=== PATIENT | male | born 1960 | race Caucasian/White ===

== ENCOUNTER 2016-04-23 08:52 | Inpatient (IN) | payer OTHER ==
--- NOTE | 2016-04-23 10:50 | HP ---
[facility] Rehab Assess/Revision - Admission History Admitted to Rehab from: [facility] Date of Admission to Rehab: 04/23/16 - Findings Detox History & Physical reviewed: Yes Concur with findings: Yes Comments/Additional Findings: for rehab as protocol
[2016-04-23 10:57] VITALS: BMI 28.1
[2016-04-23] MEDS ORDERED: P-EPHED 60MG/TRIPROLIDI 2.5MG TABLET PO PRN (13:24)
[2016-04-23] MEDS ORDERED: MAGNESIUM HYDROX 2400MG/30ML ORAL SUSPENSION 30 ML CUP PO PRN (13:24)
[2016-04-23] MEDS ORDERED: IBUPROFEN 400 MG TABLET (FP) PO PRN (13:24)
[2016-04-23] MEDS ORDERED: LOPERAMIDE HCL 2 MG CAPSULE PO PRN (13:24)
[2016-04-23] MEDS ORDERED: MENTHOL/PHENOL 1 EACH UD MM PRN (13:24)
[2016-04-23] MEDS ORDERED: hydrOXYzine PAMOATE 50 MG CAPSULE (FP) PO PRN (13:24)
[2016-04-23] MEDS ORDERED: ACETAMINOPHEN 325 MG TABLET (FP) PO PRN (13:24)
[2016-04-23] MEDS ORDERED: MAGNESIUM CITRATE 300 ML BOTTLE PO PRN (13:24)
[2016-04-23] MEDS: ALBUTEROL SO4 2.5/IPRATROPIUM 0.5 INH SOL 3 ML VIAL.NEB. NEB PRN ×2 (16:33→19:40)
[2016-04-23] MEDS: ALBUTEROL SO4 6.7 GM HFA INHALER IH PRN (18:42)
--- NOTE | 2016-04-23 22:20 | PN ---
[facility] Progress Note Note: received nurse call patient has asthma needed to be seen observed patient laying on bed alert oriented x 3 ambulatory, steady gait, speech clearly with complete whole sentence, skin warm dry good turgur, s1s2, wheezing right mid and lower lobes 02 sat 96% patient has his own medication prednison 20 mg x 4 pills taking 40 mg daily 2 more day supply zithromycin 250 mg x 4 pills po daily four more days supply begin symbicor chest x ray continue rehab
[2016-04-23] MEDS: THIAMINE HCL 100 MG TABLET (FP) PO SCH (22:22)
[2016-04-23] MEDS: ATORVASTATIN CA 10 MG TABLET (FP) PO SCH (22:22)
[2016-04-23] MEDS: BUDESONIDE/FORMETEROL FUMARATE 80/4.5 mcg INHALER IH SCH (22:28)
[2016-04-24] MEDS: ALBUTEROL SO4 2.5/IPRATROPIUM 0.5 INH SOL 3 ML VIAL.NEB. NEB PRN ×2 (03:22→20:55)
[2016-04-24] MEDS ORDERED: LEVOTHYROXINE NA 100 MCG TABLET (FP) ONE (05:59)
[2016-04-24] MEDS ORDERED: LEVOTHYROXINE NA 25 MCG TABLET (FP) ONE (05:59)
--- NOTE | 2016-04-24 06:39 | HP ---
Psychiatrist Admission - Data Date of interview: 04/24/16 Admission source: 6N Identifying data: This is the first [facility] admission for this 55 years old male, father of a 32 years old daughter, unemployed on SSI, domiciled Medical History: Significant for history of Asthma, HTN, Hyperlipidemia, LBP, treatment for Hep C and Hypothyroidism. Smokes 10 cigarettes daily Psychiatric History: Reports that his first psychiatric contact was when he was in 4th grade because of behavioral issues and anger. He was prescribed Ritalin which he took for only 2-3 years since his mother objected for him to continue with that treatment. Told feature writer, he saw psychiatrist while incarcerated in the 's, 's and s. Claims that in these settings he was diagnosed with PTSD and prescribed antidepressant medication like Sinequan, Elavil etc along with Klonopin. Currently, reports that he sees Dr Gudino, a psychiatrist in [place], [place] and he is prescribed Lexapro 20 mg po daily and Xanax 2 mg po BID. Claims he was recently switched from Prozac 60 mg to Lexapro 20 mg. Reports that he is seeing a therapist as well at a different location. Denies previous psychiatric hospitalization or suicidal attempt. At present, reports feeling mildly anxious and experiencing difficulty to sleep. Declines to take Lexapro during this rehab stay. Physical/Sexual Abuse/Trauma History: Reports having some trauma in his childhoodbut does not want to talk about it. Told feature writer that he talked to his therapist and psychiatrist about that Additional Comment: Reports multiple arrests including 3 felony convictions. Reports being on parole till Jan 2019 Vital Signs: Vital Signs - 24 hr 04/23/16 04/24/16 10:55 00:30 Temperature 98.0 F Pulse Rate 103 H Respiratory 20 18 Rate Blood Pressure 130/92 Allergies/Adverse Reactions: Allergies Allergy/AdvReac Type Severity Reaction Status Date / Time shellfish derived Allergy Severe Difficulty Verified 04/16/16 13:16 Breathing No Known Drug Allergies Allergy Verified 04/16/16 13:16 Date of last physical exam: 04/16/16 Concur with the findings of this exam: Yes - Substance Abuse/Tx History Hx Alcohol Use: No Hx Substance Use: Yes Substance Use Type: Heroin (Started using heroin at age 12, consumes 10-20 bags daily. Last used on 04/16/16) Hx Substance Use Treatment: Yes (2 previous inpt detox @ [facility]) - Admission Criteria Previous failed treatment: Yes Poor recovery environment: Yes Comorbidities: Yes Lacks judgement: Yes Mental Status Exam - Mental Status Exam Alert and Oriented to: Time, Place, Person Cognitive Function: Fair Patient Appearance: Well Groomed Mood: Anxious Affect: Appropriate Patient Behavior: Cooperative Speech Pattern: Clear Voice Loudness: Normal Thought Process: Intact Thought Disorder: Not Present Hallucinations: Denies Suicidal Ideation: Denies Homicidal Ideation: Denies Insight/Judgement: Fair Sleep: Poorly Appetite: Fair Muscle strength/Tone: Normal Gait/Station: Normal Psychiatric Findings - Problem List ([place] 1, 2,3) (1) Opioid dependence with withdrawal Current Visit: No Status: Chronic (2) Nicotine dependence Current Visit: No Status: Chronic Qualifiers: Substance use status: in remission Comment: pt quit a week ago and now vapes (3) PTSD (post-traumatic stress disorder) Current Visit: Yes Status: Acute (4) Substance-induced anxiety disorder Current Visit: Yes Status: Acute (5) Hepatitis C Current Visit: No Status: Acute (6) Low back pain Current Visit: No Status: Acute (7) Asthma Current Visit: No Status: Chronic Qualifiers: Asthma severity: mild intermittent Asthma complication type: uncomplicated Qualified Code(s): J45.20 - Mild intermittent asthma, uncomplicated (8) Hypercholesterolemia Current Visit: No Status: Chronic (9) Hypertension Current Visit: No Status: Chronic Qualifiers: Hypertension type: essential hypertension Qualified Code(s): I10 - Essential (primary) hypertension (10) Hypothyroid Current Visit: No Status: Chronic Qualifiers: Hypothyroidism type: acquired Qualified Code(s): E03.9 - Hypothyroidism, unspecified - Initial Treatment Plan Initial Treatment Plan: Monitor progress
[2016-04-24] MEDS ORDERED: LEVOTHYROXINE 25 MCG, LEVOTHYROXINE 100 MCG PO SCH (07:00)
[2016-04-24] MEDS: HYDROCHLOROTHIAZIDE 25 MG TABLET (FP) PO SCH (09:31)
[2016-04-24] MEDS: predniSONE 20 MG TABLET (UD) PO SCH (09:31)
[2016-04-24] MEDS: PRENATAL VITAMINS W/ FOLIC ACID TABLET (FP) PO SCH (09:31)
[2016-04-24] MEDS: BUDESONIDE/FORMETEROL FUMARATE 80/4.5 mcg INHALER IH SCH ×2 (09:32→21:29)
[2016-04-24] MEDS ORDERED: LEVOTHYROXINE NA 125 MCG TABLET (FP) PO SCH (10:00)
[2016-04-24] MEDS: AZITHROMYCIN 250 MG PO SCH (10:15)
[2016-04-24] MEDS: THIAMINE HCL 100 MG TABLET (FP) PO SCH (21:30)
[2016-04-24] MEDS: ATORVASTATIN CA 10 MG TABLET (FP) PO SCH (21:30)
[2016-04-24] MEDS: diphenhydrAMINE HCL 50 MG CAPSULE PO PRN (21:31)
[2016-04-25] MEDS: LEVOTHYROXINE PO SCH (06:37)
[2016-04-25] MEDS: HYDROCHLOROTHIAZIDE 25 MG TABLET (FP) PO SCH (09:36)
[2016-04-25] MEDS: AZITHROMYCIN 250 MG PO SCH (09:36)
[2016-04-25] MEDS: PRENATAL VITAMINS W/ FOLIC ACID TABLET (FP) PO SCH (09:36)
[2016-04-25] MEDS: BUDESONIDE/FORMETEROL FUMARATE 80/4.5 mcg INHALER IH SCH ×2 (09:36→21:30)
[2016-04-25] MEDS: predniSONE 20 MG TABLET (UD) PO SCH (09:36)
[2016-04-25] MEDS: ALBUTEROL SO4 6.7 GM HFA INHALER IH PRN (09:38)
[2016-04-25] MEDS: ATORVASTATIN CA 10 MG TABLET (FP) PO SCH (21:30)
[2016-04-25] MEDS: diphenhydrAMINE HCL 50 MG CAPSULE PO PRN (21:31)
[2016-04-25] MEDS: THIAMINE HCL 100 MG TABLET (FP) PO SCH (21:31)
[2016-04-26] MEDS: LEVOTHYROXINE PO SCH (06:00)
[2016-04-26] MEDS: HYDROCHLOROTHIAZIDE 25 MG TABLET (FP) PO SCH (09:49)
[2016-04-26] MEDS: PRENATAL VITAMINS W/ FOLIC ACID TABLET (FP) PO SCH (09:49)
[2016-04-26] MEDS: BUDESONIDE/FORMETEROL FUMARATE 80/4.5 mcg INHALER IH SCH ×2 (09:49→21:45)
[2016-04-26] MEDS: AZITHROMYCIN 250 MG PO SCH (09:49)
[2016-04-26] MEDS: THIAMINE HCL 100 MG TABLET (FP) PO SCH (21:45)
[2016-04-26] MEDS: ATORVASTATIN CA 10 MG TABLET (FP) PO SCH (21:46)
[2016-04-27] MEDS: LEVOTHYROXINE PO SCH (07:31)
--- NOTE | 2016-04-27 07:40 | PN ---
S Progress Note Note: patient has nausea and vomiting,will give zofran sl,close monitoring
[2016-04-27] MEDS: ONDANSETRON *ODT* 4 MG TABLET SL PRN ×2 (07:43→19:03)
--- NOTE | 2016-04-27 09:38 | PN ---
S Progress Note Note: PT. DID NOT COMPLETE DETOX,HE SIGNED OTU AMA ON 04/19/16 & RETURN FOR REHAB ON 04/23/16. PT. IS C/O WITHDRAWAL SX. Vital Signs - 8 hr 04/27/16 04/27/16 07:18 08:56 Temperature 96.8 F L 97.4 F L Pulse Rate 99 H 106 H Respiratory 20 20 Rate Blood Pressure 152/109 149/100 P : CLONIDINE/FLEXERIL & MOTRIN 800MG
[2016-04-27] MEDS: PRENATAL VITAMINS W/ FOLIC ACID TABLET (FP) PO SCH (10:20)
[2016-04-27] MEDS: HYDROCHLOROTHIAZIDE 25 MG TABLET (FP) PO SCH (10:21)
[2016-04-27] MEDS: cloNIDine HCL 0.1 MG TABLET PO SCH ×2 (10:23→21:02)
[2016-04-27] MEDS ORDERED: CYCLOBENZAPRINE HCL 10 MG TABLET (FP) ONE (10:23)
[2016-04-27] MEDS ORDERED: cloNIDine HCL 0.1 MG TABLET ONE (10:23)
[2016-04-27] MEDS: AZITHROMYCIN 250 MG PO SCH (10:24)
[2016-04-27] MEDS: BUDESONIDE/FORMETEROL FUMARATE 80/4.5 mcg INHALER IH SCH ×2 (10:25→21:02)
[2016-04-27] MEDS ORDERED: CYCLOBENZAPRINE HCL 10 MG TABLET (FP) PO ONE (10:30)
[2016-04-27] MEDS: CYCLOBENZAPRINE HCL 10 MG TABLET (FP) PO SCH ×2 (14:27→21:02)
[2016-04-27] MEDS: IBUPROFEN 400 MG TABLET (FP) PO PRN (19:03)
[2016-04-27] MEDS: ALBUTEROL SO4 6.7 GM HFA INHALER IH PRN (21:02)
[2016-04-27] MEDS: ATORVASTATIN CA 10 MG TABLET (FP) PO SCH (21:02)
[2016-04-27] MEDS: THIAMINE HCL 100 MG TABLET (FP) PO SCH (21:02)
[2016-04-28] MEDS: CYCLOBENZAPRINE HCL 10 MG TABLET (FP) PO SCH ×3 (06:56→21:48)
[2016-04-28] MEDS: LEVOTHYROXINE PO SCH (06:56)
[2016-04-28] MEDS: IBUPROFEN 400 MG TABLET (FP) PO PRN (06:57)
[2016-04-28] MEDS: cloNIDine HCL 0.1 MG TABLET PO SCH ×2 (09:53→22:23)
[2016-04-28] MEDS: BUDESONIDE/FORMETEROL FUMARATE 80/4.5 mcg INHALER IH SCH ×2 (09:53→22:23)
[2016-04-28] MEDS: PRENATAL VITAMINS W/ FOLIC ACID TABLET (FP) PO SCH (09:53)
[2016-04-28] MEDS: HYDROCHLOROTHIAZIDE 25 MG TABLET (FP) PO SCH (09:53)
[2016-04-28] MEDS: ONDANSETRON *ODT* 4 MG TABLET SL PRN (19:36)
[2016-04-28] MEDS: THIAMINE HCL 100 MG TABLET (FP) PO SCH (22:23)
[2016-04-28] MEDS: ATORVASTATIN CA 10 MG TABLET (FP) PO SCH (22:23)
[2016-04-29] MEDS: MAG HYDROX/AL HYDROX/SIMETH 30 ML UNIT-DOSE CUP PO PRN (00:54)
[2016-04-29] MEDS ORDERED: PANTOPRAZOLE 40 MG TABLET (FP) PO ONE (01:17)
--- NOTE | 2016-04-29 01:17 | PN ---
[facility] Progress Note Note: PATIENT COMPLAINT OF CHEST PAIN,DYSPEPSIA,NO RADIATION,BURPING,COMFORTABLE,NOT IN ANY DISTRESS NO RADIATION OF PAIN,NO SOB,PAIN IN THE BODY AND BACK AND EXTREMITIES VITAL SIGNS T 98.7,P100,BP 138/98,T 98.7 HEENT NORMAL NECK SUPPLE HEART SOUND NORMAL HEART SOUND,S1,S2, LUNG CLEAR,NO WHEEZING ABDOMEN SOFT,NO DISTENSION NO PAIN OR TENDERNESS BOWEL SOUND ACTIVE EXTREMITIES ON CALF TENDERNESS EKG SINUS TACHYCARDIA RATE 100/MIN,NO CHANGE COMPARE WITH 04/16/16 IMPRESSION DYSPEPSIA R/O GERD HISTORY OF OPIOID DEPENDENCE HYPERCHOLESTEROLEMIA ASTHMA WITHDRAWAL SYMPTOM TREATMENT PROTONIX 40 MGS PO NOW THEN DAILY ASA 162 MGS PO NOW THEN 81 MGS PO DAILY CLOSE MONITORING CARDIAC ENZYMES,CPK,TROPONIN FLEXERIL 10 MGS PO TID CLONIDINE 0.1 MG PO BID
[2016-04-29] MEDS ORDERED: ASPIRIN COATED 81 MG TABLET.EC PO ONE (01:31)
[2016-04-29] MEDS: CYCLOBENZAPRINE HCL 10 MG TABLET (FP) PO SCH ×3 (06:22→21:39)
[2016-04-29] MEDS: LEVOTHYROXINE PO SCH (06:23)
[2016-04-29] MEDS ORDERED: ASPIRIN COATED 81 MG TABLET.EC PO SCH (10:00)
[2016-04-29] MEDS: PRENATAL VITAMINS W/ FOLIC ACID TABLET (FP) PO SCH (11:00)
[2016-04-29] MEDS: HYDROCHLOROTHIAZIDE 25 MG TABLET (FP) PO SCH (11:00)
[2016-04-29] MEDS: ASPIRIN COATED 81 MG TABLET.EC PO SCH (11:00)
[2016-04-29] MEDS: cloNIDine HCL 0.1 MG TABLET PO SCH ×2 (11:00→21:39)
[2016-04-29] MEDS: BUDESONIDE/FORMETEROL FUMARATE 80/4.5 mcg INHALER IH SCH ×2 (11:00→21:37)
[2016-04-29 16:19] LABS: TROPONIN I < 0.02 ng/ml (0.00-0.05)
--- NOTE | 2016-04-29 20:51 | PN ---
[facility] Progress Note Note: PATIENT COMPLAINED OF EPIGASTRIC PAIN ,NAUSEA,NO VOMITING ,NO DIARRHEA STATED HAS SIMILAR PROBLEM ON AND OFF FOR 1 YEAR HAS BEEN SEEN BY PMD AND SPECIALIST A,STATED HAS CT OF ABDOMEN DONE ALERT,NOT IN DISTRESS HEART NORMAL HEART SOUND,S1S2,NO MURMUR LUNG LEAR,NO WHEEZING ABDOMEN SOFT,NO DISTENSION PAIN ON DEEP PALPATION OF EPIGASTRUIM NO MASS PALPABLE BOWEL SOUND ACTIVE NO TENDERNESS NO REBOUND NO CALF TENDERNESS Vital Signs Temperature 96 F L 04/29/16 06:30 Pulse Rate 120 H 04/29/16 15:27 Respiratory Rate 18 04/29/16 06:30 Blood Pressure 121/99 04/29/16 15:27 O2 Sat by Pulse Oximetry (%) EKG NSR NO ACUTE CHANGE RATE 80/MIN Laboratory Last Values Creatine Kinase 296 IU/L (39-308) 04/29/16 15:00 Creatine Kinase Index 0.6 % (0.0-5.0) 04/29/16 15:00 CK-MB (CK-2) 1.745 ng/ml (0.5-3.6) 04/29/16 15:00 CK-MB (CK-2) Rel Index Cancelled 04/29/16 15:00 Troponin I < 0.02 ng/ml (0.00-0.05) 04/29/16 15:00 IMPRESSION ABDOMINAL PAIN EPIGASTRIC PAIN R/O PANCREATITIS R/O GERD TREATMENT CBC,CMP,AMYLASE,LIPASE IN AM CLOSE MONITORING
[2016-04-29] MEDS: THIAMINE HCL 100 MG TABLET (FP) PO SCH (21:39)
[2016-04-29] MEDS: ATORVASTATIN CA 10 MG TABLET (FP) PO SCH (21:39)
[2016-04-30] MEDS: CYCLOBENZAPRINE HCL 10 MG TABLET (FP) PO SCH ×3 (06:23→23:05)
[2016-04-30] MEDS: LEVOTHYROXINE PO SCH (06:23)
[2016-04-30] MEDS: BUDESONIDE/FORMETEROL FUMARATE 80/4.5 mcg INHALER IH SCH ×2 (09:33→21:07)
[2016-04-30] MEDS: cloNIDine HCL 0.1 MG TABLET PO SCH ×2 (09:33→23:05)
[2016-04-30] MEDS: ASPIRIN COATED 81 MG TABLET.EC PO SCH (09:33)
[2016-04-30] MEDS: PRENATAL VITAMINS W/ FOLIC ACID TABLET (FP) PO SCH (09:33)
[2016-04-30] MEDS: HYDROCHLOROTHIAZIDE 25 MG TABLET (FP) PO SCH (09:34)
[2016-04-30 11:03] LABS: MCH 28.3 pg (25.7-33.7); MCHC 32.7 g/dl (32.0-35.9); MEAN CELL VOLUME 86.4 fl (80-96); MEAN PLT VOLUME 9.7 fl (7.5-11.1); PLATELET COUNT 265 K/MM3 (134-434); RDW 13.4 % (11.9-15.9)
[2016-04-30 11:16] LABS: AMYLASE 121 U/L (25-115)
[2016-04-30 11:26] LABS: ALBUMIN 4.2 g/dl (3.4-5.0); ALK PHOS 116 U/L (45-117); ANION GAP 6 (8-16); BILIRUBIN,TOTAL 1.2 mg/dL (0.2-1.0); CALCIUM 9.1 mg/dL (8.5-10.1); CO2 35 mmol/L (21-32); CREATININE 1.2 mg/dL (0.7-1.3); GLUCOSE,RANDOM 96 mg/dL (74-106); SGOT/AST 19 U/L (15-37); SGPT/ALT 62 U/L (12-78); TOT PROT 7.7 g/dl (6.4-8.2)
[2016-04-30] MEDS: ATORVASTATIN CA 10 MG TABLET (FP) PO SCH (23:06)
[2016-04-30] MEDS: THIAMINE HCL 100 MG TABLET (FP) PO SCH (23:06)
[2016-05-01] MEDS: CYCLOBENZAPRINE HCL 10 MG TABLET (FP) PO SCH ×3 (05:54→23:03)
[2016-05-01] MEDS: LEVOTHYROXINE PO SCH (06:42)
[2016-05-01] MEDS: BUDESONIDE/FORMETEROL FUMARATE 80/4.5 mcg INHALER IH SCH ×2 (09:36→23:03)
[2016-05-01] MEDS: ASPIRIN COATED 81 MG TABLET.EC PO SCH (09:36)
[2016-05-01] MEDS: HYDROCHLOROTHIAZIDE 25 MG TABLET (FP) PO SCH (09:37)
[2016-05-01] MEDS: cloNIDine HCL 0.1 MG TABLET PO SCH ×2 (09:38→23:02)
[2016-05-01] MEDS: PRENATAL VITAMINS W/ FOLIC ACID TABLET (FP) PO SCH (09:38)
--- NOTE | 2016-05-01 15:59 | PN ---
[facility] Progress Note Note: 55 y/o m pt with a h/o ruq pain for apprx. 1 yr . Who was evaluated at [facility] 3m ago had ct and GI evaluation stated no dx was made . Pt gives h/o egd and colonoscopy with multiple polyps removed . Pt states pt is not constant , may occur between 2-4 weeks and resolves on its own . Pain not associated with n/v/ d or fever . Pain not assoc with ingestion of food. Pt at present w/o pain states it resolved spontaeously afew minutes before this evaluation. Vital Signs Temperature 98.5 F 05/01/16 06:38 Pulse Rate 112 H 05/01/16 10:00 Respiratory Rate 20 05/01/16 10:00 Blood Pressure 141/78 05/01/16 10:00 O2 Sat by Pulse Oximetry (%) bp 114/79, p 106/m reg ,r 20/m , t 98.7 pt lying in bed aox3 in nad 'w/o abdominal pain abdomen - no scars, soft, nontender, no masses , bs+ Laboratory Tests 04/29/16 04/29/16 04/29/16 15:00 15:00 15:00 WBC RBC Hgb Hct MCV MCHC RDW Plt Count MPV Sodium Potassium Chloride Carbon Dioxide Anion Gap BUN Creatinine Creat Clearance w eGFR Random Glucose Calcium Total Bilirubin AST ALT Alkaline Phosphatase Creatine Kinase 300 296 Creatine Kinase Index 0.6 CK-MB (CK-2) 1.745 CK-MB (CK-2) Rel Index Cancelled Troponin I < 0.02 Total Protein Albumin Total Amylase Lipase 04/30/16 04/30/16 04/30/16 08:05 08:05 08:05 WBC 12.0 H D RBC 5.93 H Hgb 16.8 D Hct 51.3 H D MCV 86.4 MCHC 32.7 RDW 13.4 Plt Count 265 MPV 9.7 Sodium 133 L Potassium 3.5 Chloride 92 L D Carbon Dioxide 35 H D Anion Gap 6 L BUN 21 H D Creatinine 1.2 Creat Clearance w eGFR > 60 Random Glucose 96 Calcium 9.1 Total Bilirubin 1.2 H D AST 19 ALT 62 D Alkaline Phosphatase 116 D Creatine Kinase Creatine Kinase Index CK-MB (CK-2) CK-MB (CK-2) Rel Index Troponin I Total Protein 7.7 Albumin 4.2 Total Amylase 121 H Lipase 319 imp- ruq abdominal pain ? etiology plan will repeat labs u/s of abd
[2016-05-01] MEDS: MAG HYDROX/AL HYDROX/SIMETH 30 ML UNIT-DOSE CUP PO PRN (20:07)
[2016-05-01] MEDS: THIAMINE HCL 100 MG TABLET (FP) PO SCH (23:03)
[2016-05-01] MEDS: ATORVASTATIN CA 10 MG TABLET (FP) PO SCH (23:03)
[2016-05-02] MEDS: CYCLOBENZAPRINE HCL 10 MG TABLET (FP) PO SCH ×3 (07:00→23:27)
[2016-05-02] MEDS: LEVOTHYROXINE PO SCH (07:00)
[2016-05-02 10:11] LABS: BASOPHIL 0.4 % (0-2.0); EOSINOPHIL 2.3 % (0-4.5); MCH 28.2 pg (25.7-33.7); MCHC 32.9 g/dl (32.0-35.9); MEAN CELL VOLUME 85.7 fl (80-96); MEAN PLT VOLUME 9.8 fl (7.5-11.1); NEUTROPHILS 55.6 % (42.8-82.8); PLATELET COUNT 269 K/MM3 (134-434); RDW 12.8 % (11.9-15.9); WHITE BLOOD COUNT 8.7 K/mm3 (4.0-10.0)
[2016-05-02] MEDS: cloNIDine HCL 0.1 MG TABLET PO SCH ×2 (10:18→23:26)
[2016-05-02] MEDS: BUDESONIDE/FORMETEROL FUMARATE 80/4.5 mcg INHALER IH SCH ×2 (10:19→21:53)
[2016-05-02] MEDS: PRENATAL VITAMINS W/ FOLIC ACID TABLET (FP) PO SCH (10:19)
[2016-05-02] MEDS: HYDROCHLOROTHIAZIDE 25 MG TABLET (FP) PO SCH (10:19)
[2016-05-02] MEDS: ASPIRIN COATED 81 MG TABLET.EC PO SCH (10:19)
[2016-05-02 10:59] LABS: ALBUMIN 3.9 g/dl (3.4-5.0); ALK PHOS 108 U/L (45-117); AMYLASE 134 U/L (25-115); ANION GAP 11 (8-16); BILIRUBIN,TOTAL 1.2 mg/dL (0.2-1.0); CALCIUM 9.1 mg/dL (8.5-10.1); CO2 28 mmol/L (21-32); CREATININE 1.1 mg/dL (0.7-1.3); GLUCOSE,RANDOM 123 mg/dL (74-106); SGOT/AST 17 U/L (15-37); SGPT/ALT 57 U/L (12-78); TOT PROT 7.2 g/dl (6.4-8.2)
[2016-05-02] MEDS: ALBUTEROL SO4 2.5/IPRATROPIUM 0.5 INH SOL 3 ML VIAL.NEB. NEB PRN (18:02)
[2016-05-02] MEDS: THIAMINE HCL 100 MG TABLET (FP) PO SCH (23:27)
[2016-05-02] MEDS: ATORVASTATIN CA 10 MG TABLET (FP) PO SCH (23:27)
[2016-05-03] MEDS: CYCLOBENZAPRINE HCL 10 MG TABLET (FP) PO SCH ×3 (06:15→21:20)
[2016-05-03] MEDS: LEVOTHYROXINE PO SCH (06:15)
--- NOTE | 2016-05-03 07:16 | PN ---
S Progress Note Note: ASKED TO SEE PT FOR SKIN TEAR TO SCALP. PT REPORTS HE HIT HIS HEAD AGAINST A PAPER DISPENSER WHILE RAISING HIS HEAD UP FROM A BENDING POSITION. DENIES PAIN, LOC, DIZZINESS, OR CHANGES IN VISION. SCALP. SMALL SKIN TEAR WITH FLAP. 0.5CM X 0.5CM NOTED. NO SWELLING. SURROUNDING SKIN NTACT SCALP SKIN TEAR CLEANSE AREA WITH NS AND APPLY BACITRACIN COVER WITH CDD DAILY MONITOR FOR S/SX OF INFECTION
[2016-05-03] MEDS: PRENATAL VITAMINS W/ FOLIC ACID TABLET (FP) PO SCH (11:17)
[2016-05-03] MEDS: ASPIRIN COATED 81 MG TABLET.EC PO SCH (11:17)
[2016-05-03] MEDS: POTASSIUM CHLORIDE TABS 20 MEQ TABLET.ER (FP) PO SCH (11:17)
[2016-05-03] MEDS: BUDESONIDE/FORMETEROL FUMARATE 80/4.5 mcg INHALER IH SCH ×2 (11:18→21:19)
[2016-05-03] MEDS: BACITRACIN 0.9 GM PACKET TP SCH (11:20)
[2016-05-03] MEDS: HYDROCHLOROTHIAZIDE 25 MG TABLET (FP) PO SCH (11:20)
[2016-05-03] MEDS: cloNIDine HCL 0.1 MG TABLET PO SCH ×2 (11:20→21:20)
[2016-05-03] MEDS: THIAMINE HCL 100 MG TABLET (FP) PO SCH (21:20)
[2016-05-03] MEDS: diphenhydrAMINE HCL 50 MG CAPSULE PO PRN (21:20)
[2016-05-03] MEDS: ATORVASTATIN CA 10 MG TABLET (FP) PO SCH (21:20)
[2016-05-04] MEDS: CYCLOBENZAPRINE HCL 10 MG TABLET (FP) PO SCH ×3 (06:00→23:57)
[2016-05-04] MEDS: LEVOTHYROXINE PO SCH (06:08)
[2016-05-04] MEDS: ALBUTEROL SO4 6.7 GM HFA INHALER IH PRN ×2 (06:08→14:26)
[2016-05-04] MEDS: BACITRACIN 0.9 GM PACKET TP SCH (09:57)
[2016-05-04] MEDS: PRENATAL VITAMINS W/ FOLIC ACID TABLET (FP) PO SCH (09:57)
[2016-05-04] MEDS: BUDESONIDE/FORMETEROL FUMARATE 80/4.5 mcg INHALER IH SCH ×2 (09:57→23:57)
[2016-05-04] MEDS: cloNIDine HCL 0.1 MG TABLET PO SCH ×2 (09:57→23:57)
[2016-05-04] MEDS: POTASSIUM CHLORIDE TABS 20 MEQ TABLET.ER (FP) PO SCH (09:58)
[2016-05-04] MEDS: ASPIRIN COATED 81 MG TABLET.EC PO SCH (09:58)
[2016-05-04] MEDS: HYDROCHLOROTHIAZIDE 25 MG TABLET (FP) PO SCH (09:58)
[2016-05-04] MEDS: ATORVASTATIN CA 10 MG TABLET (FP) PO SCH (23:57)
[2016-05-04] MEDS: THIAMINE HCL 100 MG TABLET (FP) PO SCH (23:57)
[2016-05-05] MEDS: CYCLOBENZAPRINE HCL 10 MG TABLET (FP) PO SCH ×3 (06:01→21:25)
[2016-05-05] MEDS: LEVOTHYROXINE PO SCH (06:01)
[2016-05-05] MEDS: BUDESONIDE/FORMETEROL FUMARATE 80/4.5 mcg INHALER IH SCH ×2 (09:46→21:25)
[2016-05-05] MEDS: BACITRACIN 0.9 GM PACKET TP SCH (09:46)
[2016-05-05] MEDS: POTASSIUM CHLORIDE TABS 20 MEQ TABLET.ER (FP) PO SCH (09:46)
[2016-05-05] MEDS: cloNIDine HCL 0.1 MG TABLET PO SCH ×2 (09:47→21:25)
[2016-05-05] MEDS: ASPIRIN COATED 81 MG TABLET.EC PO SCH (09:47)
[2016-05-05] MEDS: PRENATAL VITAMINS W/ FOLIC ACID TABLET (FP) PO SCH (09:47)
[2016-05-05] MEDS: HYDROCHLOROTHIAZIDE 25 MG TABLET (FP) PO SCH (09:47)
[2016-05-05] MEDS: ATORVASTATIN CA 10 MG TABLET (FP) PO SCH (21:25)
[2016-05-05] MEDS: THIAMINE HCL 100 MG TABLET (FP) PO SCH (21:26)
[2016-05-06] MEDS: CYCLOBENZAPRINE HCL 10 MG TABLET (FP) PO SCH ×3 (06:08→22:25)
[2016-05-06] MEDS: LEVOTHYROXINE PO SCH (06:08)
[2016-05-06] MEDS: BACITRACIN 0.9 GM PACKET TP SCH (09:42)
[2016-05-06] MEDS: ASPIRIN COATED 81 MG TABLET.EC PO SCH (09:42)
[2016-05-06] MEDS: PRENATAL VITAMINS W/ FOLIC ACID TABLET (FP) PO SCH (09:43)
[2016-05-06] MEDS: ALBUTEROL SO4 6.7 GM HFA INHALER IH PRN ×2 (09:43→22:21)
[2016-05-06] MEDS: cloNIDine HCL 0.1 MG TABLET PO SCH ×2 (09:43→22:25)
[2016-05-06] MEDS: BUDESONIDE/FORMETEROL FUMARATE 80/4.5 mcg INHALER IH SCH ×2 (09:43→22:22)
[2016-05-06] MEDS: HYDROCHLOROTHIAZIDE 25 MG TABLET (FP) PO SCH (09:43)
[2016-05-06] MEDS ORDERED: COLLOIDAL OATMEAL 1 EACH PACKET TP PRN (13:46)
[2016-05-06] MEDS ORDERED: COLLOIDAL OATMEAL 1 BAR EACH TP PRN (15:00)
[2016-05-06] MEDS: ATORVASTATIN CA 10 MG TABLET (FP) PO SCH (22:25)
[2016-05-06] MEDS: THIAMINE HCL 100 MG TABLET (FP) PO SCH (22:25)
[2016-05-06] MEDS: AMMONIUM LACTATE 12% LOTION 225 GM BOTTLE TP PRN (23:19)
[2016-05-07] MEDS: CYCLOBENZAPRINE HCL 10 MG TABLET (FP) PO SCH ×3 (05:57→22:21)
[2016-05-07] MEDS: LEVOTHYROXINE PO SCH (06:01)
[2016-05-07] MEDS: ASPIRIN COATED 81 MG TABLET.EC PO SCH (09:38)
[2016-05-07] MEDS: BUDESONIDE/FORMETEROL FUMARATE 80/4.5 mcg INHALER IH SCH ×2 (09:39→21:18)
[2016-05-07] MEDS: PRENATAL VITAMINS W/ FOLIC ACID TABLET (FP) PO SCH (09:39)
[2016-05-07] MEDS: BACITRACIN 0.9 GM PACKET TP SCH (09:39)
[2016-05-07] MEDS: HYDROCHLOROTHIAZIDE 25 MG TABLET (FP) PO SCH (09:39)
[2016-05-07] MEDS: cloNIDine HCL 0.1 MG TABLET PO SCH ×2 (09:39→22:21)
[2016-05-07] MEDS: ALBUTEROL SO4 6.7 GM HFA INHALER IH PRN (21:18)
[2016-05-07] MEDS: AMMONIUM LACTATE 12% LOTION 225 GM BOTTLE TP PRN (21:18)
[2016-05-07] MEDS: ATORVASTATIN CA 10 MG TABLET (FP) PO SCH (22:22)
[2016-05-07] MEDS: THIAMINE HCL 100 MG TABLET (FP) PO SCH (22:23)
[2016-05-08] MEDS: CYCLOBENZAPRINE HCL 10 MG TABLET (FP) PO SCH ×3 (06:00→21:47)
[2016-05-08] MEDS: LEVOTHYROXINE PO SCH (06:00)
[2016-05-08] MEDS: HYDROCHLOROTHIAZIDE 25 MG TABLET (FP) PO SCH (10:43)
[2016-05-08] MEDS: cloNIDine HCL 0.1 MG TABLET PO SCH ×2 (10:43→21:47)
[2016-05-08] MEDS: BUDESONIDE/FORMETEROL FUMARATE 80/4.5 mcg INHALER IH SCH ×2 (10:43→21:47)
[2016-05-08] MEDS: PRENATAL VITAMINS W/ FOLIC ACID TABLET (FP) PO SCH (10:43)
[2016-05-08] MEDS: BACITRACIN 0.9 GM PACKET TP SCH (10:43)
[2016-05-08] MEDS: ASPIRIN COATED 81 MG TABLET.EC PO SCH (10:43)
[2016-05-08] MEDS: ATORVASTATIN CA 10 MG TABLET (FP) PO SCH (21:47)
[2016-05-08] MEDS: THIAMINE HCL 100 MG TABLET (FP) PO SCH (21:48)
[2016-05-09] MEDS: CYCLOBENZAPRINE HCL 10 MG TABLET (FP) PO SCH ×3 (05:51→22:55)
[2016-05-09] MEDS: LEVOTHYROXINE PO SCH (06:05)
[2016-05-09] MEDS: BACITRACIN 0.9 GM PACKET TP SCH (09:59)
[2016-05-09] MEDS: HYDROCHLOROTHIAZIDE 25 MG TABLET (FP) PO SCH (09:59)
[2016-05-09] MEDS: ASPIRIN COATED 81 MG TABLET.EC PO SCH (09:59)
[2016-05-09] MEDS: cloNIDine HCL 0.1 MG TABLET PO SCH ×2 (10:00→22:55)
[2016-05-09] MEDS: BUDESONIDE/FORMETEROL FUMARATE 80/4.5 mcg INHALER IH SCH ×2 (10:00→22:55)
[2016-05-09] MEDS: PRENATAL VITAMINS W/ FOLIC ACID TABLET (FP) PO SCH (10:00)
[2016-05-09] MEDS: THIAMINE HCL 100 MG TABLET (FP) PO SCH (22:55)
[2016-05-09] MEDS: ATORVASTATIN CA 10 MG TABLET (FP) PO SCH (22:55)
[2016-05-10] MEDS: CYCLOBENZAPRINE HCL 10 MG TABLET (FP) PO SCH ×3 (05:47→21:48)
[2016-05-10] MEDS: LEVOTHYROXINE PO SCH (06:11)
[2016-05-10] MEDS: PRENATAL VITAMINS W/ FOLIC ACID TABLET (FP) PO SCH (09:53)
[2016-05-10] MEDS: cloNIDine HCL 0.1 MG TABLET PO SCH ×2 (09:53→21:48)
[2016-05-10] MEDS: HYDROCHLOROTHIAZIDE 25 MG TABLET (FP) PO SCH (09:53)
[2016-05-10] MEDS: BACITRACIN 0.9 GM PACKET TP SCH (09:53)
[2016-05-10] MEDS: BUDESONIDE/FORMETEROL FUMARATE 80/4.5 mcg INHALER IH SCH ×2 (09:53→21:49)
[2016-05-10] MEDS: ASPIRIN COATED 81 MG TABLET.EC PO SCH (09:53)
[2016-05-10] MEDS: ATORVASTATIN CA 10 MG TABLET (FP) PO SCH (21:48)
[2016-05-10] MEDS: THIAMINE HCL 100 MG TABLET (FP) PO SCH (21:49)
[2016-05-11] MEDS: LEVOTHYROXINE PO SCH (06:06)
[2016-05-11] MEDS: CYCLOBENZAPRINE HCL 10 MG TABLET (FP) PO SCH ×3 (06:06→22:16)
[2016-05-11] MEDS: HYDROCHLOROTHIAZIDE 25 MG TABLET (FP) PO SCH (10:26)
[2016-05-11] MEDS: BACITRACIN 0.9 GM PACKET TP SCH (10:26)
[2016-05-11] MEDS: PRENATAL VITAMINS W/ FOLIC ACID TABLET (FP) PO SCH (10:27)
[2016-05-11] MEDS: cloNIDine HCL 0.1 MG TABLET PO SCH ×2 (10:27→22:16)
[2016-05-11] MEDS: ASPIRIN COATED 81 MG TABLET.EC PO SCH (10:27)
[2016-05-11] MEDS: BUDESONIDE/FORMETEROL FUMARATE 80/4.5 mcg INHALER IH SCH ×2 (10:28→22:17)
[2016-05-11] MEDS: ATORVASTATIN CA 10 MG TABLET (FP) PO SCH (22:16)
[2016-05-11] MEDS: THIAMINE HCL 100 MG TABLET (FP) PO SCH (22:17)
[2016-05-12] MEDS: CYCLOBENZAPRINE HCL 10 MG TABLET (FP) PO SCH ×3 (06:28→22:49)
[2016-05-12] MEDS: LEVOTHYROXINE PO SCH (06:28)
[2016-05-12] MEDS: ALBUTEROL SO4 6.7 GM HFA INHALER IH PRN ×2 (07:59→21:11)
[2016-05-12] MEDS: PRENATAL VITAMINS W/ FOLIC ACID TABLET (FP) PO SCH (09:55)
[2016-05-12] MEDS: ASPIRIN COATED 81 MG TABLET.EC PO SCH (09:55)
[2016-05-12] MEDS: ALBUTEROL SO4 2.5/IPRATROPIUM 0.5 INH SOL 3 ML VIAL.NEB. NEB PRN ×2 (09:56→17:44)
[2016-05-12] MEDS: HYDROCHLOROTHIAZIDE 25 MG TABLET (FP) PO SCH (09:56)
[2016-05-12] MEDS: cloNIDine HCL 0.1 MG TABLET PO SCH ×2 (09:56→22:49)
[2016-05-12] MEDS: BUDESONIDE/FORMETEROL FUMARATE 80/4.5 mcg INHALER IH SCH ×2 (09:56→21:11)
[2016-05-12] MEDS: guaiFENesin/D-METHORPHAN HB 10 ML UNIT-DOSE CUPS PO PRN ×2 (10:09→17:45)
[2016-05-12] MEDS: BACITRACIN 0.9 GM PACKET TP SCH (10:36)
[2016-05-12] MEDS: AMMONIUM LACTATE 12% LOTION 225 GM BOTTLE TP PRN (21:11)
[2016-05-12] MEDS: ATORVASTATIN CA 10 MG TABLET (FP) PO SCH (22:49)
[2016-05-12] MEDS: THIAMINE HCL 100 MG TABLET (FP) PO SCH (22:50)
[2016-05-13] MEDS: LEVOTHYROXINE PO SCH (06:19)
[2016-05-13] MEDS: CYCLOBENZAPRINE HCL 10 MG TABLET (FP) PO SCH ×3 (06:19→21:07)
[2016-05-13] MEDS: BACITRACIN 0.9 GM PACKET TP SCH (09:41)
[2016-05-13] MEDS: HYDROCHLOROTHIAZIDE 25 MG TABLET (FP) PO SCH (09:41)
[2016-05-13] MEDS: PRENATAL VITAMINS W/ FOLIC ACID TABLET (FP) PO SCH (09:41)
[2016-05-13] MEDS: cloNIDine HCL 0.1 MG TABLET PO SCH ×2 (09:41→21:07)
[2016-05-13] MEDS: BUDESONIDE/FORMETEROL FUMARATE 80/4.5 mcg INHALER IH SCH ×2 (09:41→21:06)
[2016-05-13] MEDS: ASPIRIN COATED 81 MG TABLET.EC PO SCH (09:41)
[2016-05-13] MEDS: ATORVASTATIN CA 10 MG TABLET (FP) PO SCH (21:07)
[2016-05-13] MEDS: THIAMINE HCL 100 MG TABLET (FP) PO SCH (21:07)
[2016-05-14] MEDS: CYCLOBENZAPRINE HCL 10 MG TABLET (FP) PO SCH ×3 (05:56→21:26)
[2016-05-14] MEDS: LEVOTHYROXINE PO SCH (06:13)
[2016-05-14] MEDS: cloNIDine HCL 0.1 MG TABLET PO SCH ×2 (10:58→21:26)
[2016-05-14] MEDS: BACITRACIN 0.9 GM PACKET TP SCH (10:58)
[2016-05-14] MEDS: HYDROCHLOROTHIAZIDE 25 MG TABLET (FP) PO SCH (10:58)
[2016-05-14] MEDS: ASPIRIN COATED 81 MG TABLET.EC PO SCH (10:58)
[2016-05-14] MEDS: BUDESONIDE/FORMETEROL FUMARATE 80/4.5 mcg INHALER IH SCH ×2 (10:58→21:25)
[2016-05-14] MEDS: PRENATAL VITAMINS W/ FOLIC ACID TABLET (FP) PO SCH (10:58)
[2016-05-14] MEDS: THIAMINE HCL 100 MG TABLET (FP) PO SCH (21:26)
[2016-05-14] MEDS: ATORVASTATIN CA 10 MG TABLET (FP) PO SCH (21:26)
[2016-05-15] MEDS: CYCLOBENZAPRINE HCL 10 MG TABLET (FP) PO SCH ×3 (05:52→22:49)
[2016-05-15] MEDS: LEVOTHYROXINE PO SCH (06:09)
[2016-05-15] MEDS: BUDESONIDE/FORMETEROL FUMARATE 80/4.5 mcg INHALER IH SCH ×2 (09:53→22:50)
[2016-05-15] MEDS: ASPIRIN COATED 81 MG TABLET.EC PO SCH (09:53)
[2016-05-15] MEDS: BACITRACIN 0.9 GM PACKET TP SCH (09:53)
[2016-05-15] MEDS: cloNIDine HCL 0.1 MG TABLET PO SCH ×2 (09:53→22:49)
[2016-05-15] MEDS: PRENATAL VITAMINS W/ FOLIC ACID TABLET (FP) PO SCH (09:53)
[2016-05-15] MEDS: HYDROCHLOROTHIAZIDE 25 MG TABLET (FP) PO SCH (09:53)
[2016-05-15] MEDS: ATORVASTATIN CA 10 MG TABLET (FP) PO SCH (22:49)
[2016-05-15] MEDS: THIAMINE HCL 100 MG TABLET (FP) PO SCH (22:50)
[2016-05-16] MEDS: LEVOTHYROXINE PO SCH (06:19)
[2016-05-16] MEDS: CYCLOBENZAPRINE HCL 10 MG TABLET (FP) PO SCH ×3 (06:19→21:01)
[2016-05-16] MEDS: cloNIDine HCL 0.1 MG TABLET PO SCH ×2 (10:04→21:01)
[2016-05-16] MEDS: ASPIRIN COATED 81 MG TABLET.EC PO SCH (10:04)
[2016-05-16] MEDS: HYDROCHLOROTHIAZIDE 25 MG TABLET (FP) PO SCH (10:04)
[2016-05-16] MEDS: BACITRACIN 0.9 GM PACKET TP SCH (10:04)
[2016-05-16] MEDS: PRENATAL VITAMINS W/ FOLIC ACID TABLET (FP) PO SCH (10:04)
[2016-05-16] MEDS: BUDESONIDE/FORMETEROL FUMARATE 80/4.5 mcg INHALER IH SCH ×2 (10:04→21:02)
[2016-05-16] MEDS: IBUPROFEN 400 MG TABLET (FP) PO PRN (21:00)
[2016-05-16] MEDS: ATORVASTATIN CA 10 MG TABLET (FP) PO SCH (21:01)
[2016-05-16] MEDS: THIAMINE HCL 100 MG TABLET (FP) PO SCH (21:02)
[2016-05-16] MEDS: diphenhydrAMINE HCL 50 MG CAPSULE PO PRN (23:29)
[2016-05-17] MEDS: CYCLOBENZAPRINE HCL 10 MG TABLET (FP) PO SCH ×3 (05:55→21:32)
[2016-05-17] MEDS: LEVOTHYROXINE PO SCH (06:02)
[2016-05-17] MEDS: ASPIRIN COATED 81 MG TABLET.EC PO SCH (09:57)
[2016-05-17] MEDS: PRENATAL VITAMINS W/ FOLIC ACID TABLET (FP) PO SCH (09:57)
[2016-05-17] MEDS: BACITRACIN 0.9 GM PACKET TP SCH (09:58)
[2016-05-17] MEDS: HYDROCHLOROTHIAZIDE 25 MG TABLET (FP) PO SCH (09:58)
[2016-05-17] MEDS: cloNIDine HCL 0.1 MG TABLET PO SCH ×2 (09:58→21:32)
[2016-05-17] MEDS: BUDESONIDE/FORMETEROL FUMARATE 80/4.5 mcg INHALER IH SCH ×2 (09:58→21:30)
[2016-05-17] MEDS: diphenhydrAMINE HCL 50 MG CAPSULE PO PRN (21:28)
[2016-05-17] MEDS: IBUPROFEN 400 MG TABLET (FP) PO PRN (21:29)
[2016-05-17] MEDS: THIAMINE HCL 100 MG TABLET (FP) PO SCH (21:32)
[2016-05-17] MEDS: ATORVASTATIN CA 10 MG TABLET (FP) PO SCH (21:32)
[2016-05-18] MEDS: LEVOTHYROXINE PO SCH (06:00)
[2016-05-18] MEDS: CYCLOBENZAPRINE HCL 10 MG TABLET (FP) PO SCH ×2 (06:09→14:56)
[2016-05-18 06:39] VITALS: TEMP 98.5
[2016-05-18] MEDS: BUDESONIDE/FORMETEROL FUMARATE 80/4.5 mcg INHALER IH SCH (10:28)
[2016-05-18] MEDS: BACITRACIN 0.9 GM PACKET TP SCH (10:28)
[2016-05-18] MEDS: cloNIDine HCL 0.1 MG TABLET PO SCH (10:28)
[2016-05-18] MEDS: HYDROCHLOROTHIAZIDE 25 MG TABLET (FP) PO SCH (10:28)
[2016-05-18] MEDS: ASPIRIN COATED 81 MG TABLET.EC PO SCH (10:28)
[2016-05-18] MEDS: PRENATAL VITAMINS W/ FOLIC ACID TABLET (FP) PO SCH (10:28)
[2016-05-18 12:27] VITALS: BP 111/69; PULSE 98
== END 2016-05-18 17:15 | disposition left against medical advice (07) | DRG 770 ==
LOC: YASAS 08:52 → Y3W 13:21
PROVIDERS: ADMIT Psychiatry & Neurology Psychiatry; ATTEND Psychiatry & Neurology Psychiatry
PROC: HZ2ZZZZ Detoxification Services for Substance Abuse Treatment (ICD-10-PCS; principal; 2016-04-23)
DX: F11.20 Opioid dependence, uncomplicated (principal); F17.210 Nicotine dependence, cigarettes, uncomplicated; F43.10 Post-traumatic stress disorder, unspecified; F19.280 Other psychoactive substance dependence with psychoactive substance-induced anxiety disorder; K21.9 Gastro-esophageal reflux disease without esophagitis; J45.20 Mild intermittent asthma, uncomplicated; E78.00 Pure hypercholesterolemia, unspecified; B18.2 Chronic viral hepatitis C; M54.5 Low back pain; I10 Essential (primary) hypertension; E03.9 Hypothyroidism, unspecified; R10.13 Epigastric pain; R10.11 Right upper quadrant pain; S01.00XA Unspecified open wound of scalp, initial encounter; W22.8XXA Striking against or struck by other objects, initial encounter; Y93.89 Activity, other specified; Y92.238 Other place in hospital as the place of occurrence of the external cause
CPT/HCPCS: 36415; 71020-TC; 76700-TC; 80053; 82150; 82550; 82553; 83690; 84443; 84484; 85025; 85027; 93005; 93010; 94640

== ENCOUNTER 2016-09-02 11:28 | Inpatient (IN) | payer OTHER ==
[2016-09-02 12:27] VITALS: BMI 26.7
--- NOTE | 2016-09-02 13:55 | HP ---
COWS - Scale Resting Pulse: 1= [place] 81-100 Sweatin=Flushed/Facial Moisture Restless Observation: 1= Difficult to Sit Still Pupil Size: 0= Normal to Room Light Bone or Joint Aches: 2= Severe Diffuse Aches Runny Nose/ Eye Tearin= Runny Nose/Eyes GI Upset > 30mins: 1= Stomach Cramp Tremor Observation: 2= Slight Tremor Visible Yawning Observation: 2= >3x During Session Anxiety or Irritability: 2=Irritable/Anxious Goose Flesh Skin: 0=Smooth Skin COWS Score: 15 Admission ROS S - HPI Chief Complaint: I am here to detox and stop using. Allergies/Adverse Reactions: Allergies Allergy/AdvReac Type Severity Reaction Status Date / Time No Known Drug Allergies Allergy Verified 07/03/16 09:51 History of Present Illness: pt is a 56yr old male with a history of heroin dependence seeking detox for treatment. Exam Limitations: No Limitations - Ebola screening Have you traveled outside of the country in the last 21 days: No Have you had contact with anyone from an Ebola affected area: No Have you been sick,other than usual withdrawal symptoms: No Do you have a fever: No - Review of Systems Constitutional: No Symptoms Reported EENT: reports: No Symptoms Reported Respiratory: reports: No Symptoms reported Cardiac: reports: No Symptoms Reported GI: reports: Poor Fluid Intake : reports: No Symptoms Reported Musculoskeletal: reports: Back Pain Integumentary: reports: Flushing, Sweating Neuro: reports: Tingling, Tremors Endocrine: reports: Excessive Sweating, Flushing, Intolerance to Cold, Intolerance to Heat Hematology: reports: No Symptoms Reported Psychiatric: reports: Judgement Intact, Mood/Affect Appropiate, Orientated x3, Agitated, Anxious Other Systems: Reviewed and Negative Patient History - Patient Medical History Hx Anemia: No Hx Asthma: Yes Hx Chronic Obstructive Pulmonary Disease (COPD): No Hx Cancer: No Hx Cardiac Disorders: No Hx Congestive Heart Failure: No Hx Hypertension: Yes Hx Hypercholesterolemia: Yes (ON MED LIPITOR 10 MGS PO NIGHTLY not taking any meds) Hx Pacemaker: No HX Cerebrovascular Accident: No Hx Seizures: No Hx Dementia: No Hx Diabetes: No Hx Gastrointestinal Disorders: No Hx Liver Disease: No Hx Genitourinary Disorders: No Hx Sexually Transmitted Disorders: No Hx Renal Disease (ESRD): No Hx Thyroid Disease: Yes (HYPOTHYROIDISM) Hx Human Immunodeficiency Virus (HIV): No (LAST 2014 NEGATIVE) Hx Hepatitis C: Yes (received tx 2009; undectable.) Hx Depression: Yes Hx Suicide Attempt: No Hx Bipolar Disorder: No Hx Schizophrenia: No - Patient Surgical History Past Surgical History: No Hx Neurologic Surgery: No Hx Cataract Extraction: No Hx Cardiac Surgery: No Hx Lung Surgery: No Hx Breast Surgery: No Hx Breast Biopsy: No Hx Abdominal Surgery: No Hx Appendectomy: No Hx Cholecystectomy: No Hx Genitourinary Surgery: No Hx Section: No Hx Orthopedic Surgery: No Anesthesia Reaction: No - PPD History Previous Implant?: Yes Documented Results: Positive w/o proof Results: (-) cxr106/25/15 - Reproductive History Patient is a Female of Child Bearing Age (11 -55 yrs old): No - Smoking Cessation Smoking history: Current every day smoker Have you smoked in the past 12 months: Yes Aproximately how many cigarettes per day: 20 Cigars Per Day: 0 Hx Chewing Tobacco Use: No Initiated information on smoking cessation: Yes 'Breaking Loose' booklet given: 09/02/16 - Substance & Tx. History Hx Alcohol Use: No Hx Substance Use: Yes Substance Use Type: Heroin Hx Substance Use Treatment: Yes - Substances Abused Heroin Route: Inhalation Frequency: Daily Amount used: 30-40 bags Age of first use: 11 Date of Last Use: 09/02/16 Family Disease History - Family Disease History Family Disease History: Diabetes: Mother Admission Physical Exam [facility] - Vital Signs Vital Signs: Vital Signs - 24 hr 09/02/16 12:25 Temperature 97.2 F L Pulse Rate 98 H Respiratory 20 Rate Blood Pressure 134/77 - Physical General Appearance: Yes: Appropriately Dressed, Moderate Distress, Tremorous, Irritable, Sweating, Anxious HEENTM: Yes: Normal Voice Respiratory: Yes: Lungs Clear, Normal Breath Sounds, No Respiratory Distress Neck: Yes: No masses,lesions,Nodules Breast: Yes: Within Normal Limits Cardiology: Yes: Regular Rhythm, Regular Rate, S1, S2 Abdominal: Yes: Normal Bowel Sounds Genitourinary: Yes: Within Normal Limits Back: Yes: Normal Inspection Musculoskeletal: Yes: Back pain Extremities: Yes: Normal Capillary Refill, Normal Inspection, Tremors Neurological: Yes: Fully Oriented, Alert, Normal Response Integumentary: Yes: Normal Color Lymphatic: Yes: Within Normal Limits - Diagnostic (1) Nicotine dependence Current Visit: Yes Status: Chronic Qualifiers: Nicotine product type: cigarettes Substance use status: uncomplicated Qualified Code(s): F17.210 - Nicotine dependence, cigarettes, uncomplicated Comment: pt quit a week ago and now vapes (2) Opioid dependence with withdrawal Current Visit: Yes Status: Chronic (3) Asthma Current Visit: Yes Status: Chronic Qualifiers: Asthma severity: mild intermittent Asthma complication type: uncomplicated Qualified Code(s): J45.20 - Mild intermittent asthma, uncomplicated (4) Hepatitis C Current Visit: Yes Status: Chronic Qualifiers: Viral hepatitis chronicity: chronic Hepatic coma status: without hepatic coma Qualified Code(s): B18.2 - Chronic viral hepatitis C (5) Hypercholesterolemia Current Visit: Yes Status: Chronic Comment: not taking any medication (6) Hypertension Current Visit: Yes Status: Chronic Qualifiers: Hypertension type: essential hypertension Qualified Code(s): I10 - Essential (primary) hypertension Comment: not taking any medication (7) Hypothyroid Current Visit: Yes Status: Chronic Qualifiers: Hypothyroidism type: acquired Qualified Code(s): E03.9 - Hypothyroidism, unspecified Cleared for Admission [facility] - Detox or Rehab [facility] Level of Care: Medically Managed Detox Regimen/Protocol: Methadone [facility] Breath Alcohol Content Breath Alcohol Content: 0 Urine Drug Screen - Results Drug Screen Negative: No Urine Drug Screen Results: OPI-Opiates
[2016-09-02] MEDS ORDERED: IBUPROFEN 400 MG TABLET (FP) PO PRN (13:58)
[2016-09-02] MEDS ORDERED: P-EPHED 60MG/TRIPROLIDI 2.5MG TABLET PO PRN (13:58)
[2016-09-02] MEDS ORDERED: diphenhydrAMINE HCL 50 MG CAPSULE PO PRN (13:58)
[2016-09-02] MEDS ORDERED: guaiFENesin/D-METHORPHAN HB 10 ML UNIT-DOSE CUPS PO PRN (13:58)
[2016-09-02] MEDS ORDERED: LOPERAMIDE HCL 2 MG CAPSULE PO PRN (13:58)
[2016-09-02] MEDS ORDERED: MAGNESIUM CITRATE 300 ML BOTTLE PO PRN (13:58)
[2016-09-02] MEDS ORDERED: MENTHOL/PHENOL 1 EACH UD MM PRN (13:58)
[2016-09-02] MEDS ORDERED: ACETAMINOPHEN 325 MG TABLET (FP) PO PRN (13:58)
[2016-09-02] MEDS ORDERED: MAGNESIUM HYDROX 2400MG/30ML ORAL SUSPENSION 30 ML CUP PO PRN (13:58)
[2016-09-02] MEDS ORDERED: METHADONE HCL 10 MG TABLET (FOR DETOX USE ONLY) PO ONE ×2 (14:33→23:00)
[2016-09-02] MEDS: diazePAM 5 MG TABLET PO PRN (15:30)
--- NOTE | 2016-09-02 16:49 | CONSULT ---
[facility] Psychiatric Consult - Data Date of interview: 09/02/16 Admission source: [facility] Identifying data: One of multiple admissions to [facility] for this 56 y/o male seeking detox treatment on for alcohol and heroin dependence.Patient is a ,a father of one,domiciled,disabled and supported on SSI benefits. Substance Abuse History: - Smoking Cessation. Smoking history: Current every day smoker. Have you smoked in the past 12 months: Yes. Aproximately how many cigarettes per day: 20. Cigars Per Day: 0. Hx Chewing Tobacco Use: No. Initiated information on smoking cessation: Yes. 'Breaking Loose' booklet given : 09/02/16. - Substance & Tx. History. Hx Alcohol Use: No. Hx Substance Use: Yes. Substance Use Type: Heroin. Hx Substance Use Treatment: Yes. - Substances Abused. Heroin. Route: Inhalation. Frequency: Daily. Amount used: 30-40 bags. Age of first use: 11. Date of Last Use: 09/02/16. Confirmed by patient. Medical History: Bronchial asthma,hypertension,dyslipidemia,hepatitis C,low back pain hepatitis c and hypothyroidism. Psychiatric History: Patient denies history of psychiatric hospitalizations.He indicates his intention to abstain from any psychotropic medication other than detox agents.Mr Farr is still seeeing a private psychiatrist and a therapist in [facility].Diagnosed with PTSD.Past treatment with psychostimulants during childhood.Patient denies history of suicide attempts. Physical/Sexual Abuse/Trauma History: Patient declines to provide any information." don't want to talk about these issues." Additional Comment: Urine Drug Screen Results: OPI-Opiates.Noted. Mental Status Exam - Mental Status Exam Alert and Oriented to: Time, Place, Person Cognitive Function: Good Patient Appearance: Disheveled (appears tired,fatigued) Mood: Withdrawn (neutral) Affect: Mood Congruent, Constricted Patient Behavior: Fatigued, Guarded (about issue of abuse), Appropriate, Cooperative Speech Pattern: Clear Voice Loudness: Normal Thought Process: Goal Oriented Thought Disorder: Not Present Hallucinations: Denies Suicidal Ideation: Denies Homicidal Ideation: Denies Insight/Judgement: Poor Sleep: Well, Poorly Appetite: Good Muscle strength/Tone: Normal Gait/Station: Normal Psychiatric Findings - Problem List ([place] 1, 2,3) (1) Opioid dependence with withdrawal Current Visit: Yes Status: Acute (2) Nicotine dependence Current Visit: Yes Status: Acute Qualifiers: Nicotine product type: cigarettes Substance use status: uncomplicated Qualified Code(s): F17.210 - Nicotine dependence, cigarettes, uncomplicated Comment: pt quit a week ago and now vapes (3) Substance induced mood disorder Current Visit: Yes Status: Acute (4) PTSD (post-traumatic stress disorder) Current Visit: Yes Status: Chronic (5) Asthma Current Visit: Yes Status: Chronic Qualifiers: Asthma severity: mild intermittent Asthma complication type: uncomplicated Qualified Code(s): J45.20 - Mild intermittent asthma, uncomplicated (6) Hepatitis C Current Visit: Yes Status: Chronic Qualifiers: Viral hepatitis chronicity: chronic Hepatic coma status: without hepatic coma Qualified Code(s): B18.2 - Chronic viral hepatitis C (7) Hypercholesterolemia Current Visit: Yes Status: Chronic Comment: not taking any medication (8) Hypertension Current Visit: Yes Status: Chronic Qualifiers: Hypertension type: essential hypertension Qualified Code(s): I10 - Essential (primary) hypertension Comment: not taking any medication (9) Hypothyroid Current Visit: Yes Status: Chronic Qualifiers: Hypothyroidism type: acquired Qualified Code(s): E03.9 - Hypothyroidism, unspecified (10) Low back pain Current Visit: No Status: Chronic - Initial Treatment Plan Initial Treatment Plan: Psychoeducation.Detoxification initiated.Observation.
[2016-09-02 19:10] LABS: URINE APPEARANCE CLEAR; URINE BILIRUBIN NEGATIVE (NEGATIVE); URINE COLOR YELLOW; URINE GLUCOSE (UA) NEGATIVE (NEGATIVE); URINE KETONE NEGATIVE (NEGATIVE); URINE LEUK ESTERASE NEGATIVE (NEGATIVE); URINE NITRITE NEGATIVE (NEGATIVE); URINE PROTEIN NEGATIVE (NEGATIVE); URINE UROBILINOGEN 2.0 E.U/dl E.U./dl (0.2-1.0)
[2016-09-02 19:17] LABS: URINE BLOOD 1+ (NEGATIVE)
[2016-09-02] MEDS: ALBUTEROL SO4 6.7 GM HFA INHALER IH PRN (20:38)
[2016-09-02 22:42] LABS: HIV 1 & 2 AB NEGATIVE; HIV 1 AGp24 NEGATIVE
[2016-09-02] MEDS: THIAMINE HCL 100 MG TABLET (FP) PO SCH (22:48)
[2016-09-02] MEDS: ATORVASTATIN CA 10 MG TABLET (FP) PO SCH (22:50)
[2016-09-02] MEDS ORDERED: ALBUTEROL SO4 2.5/IPRATROPIUM 0.5 INH SOL 3 ML VIAL.NEB. NEB PRN (23:18)
[2016-09-03] MEDS ORDERED: LEVOTHYROXINE NA 100 MCG TABLET (FP) ONE (05:32)
[2016-09-03] MEDS ORDERED: LEVOTHYROXINE NA 25 MCG TABLET (FP) ONE (05:32)
[2016-09-03] MEDS: LEVOTHYROXINE 25 MCG, LEVOTHYROXINE 100 MCG PO SCH (07:05)
[2016-09-03] MEDS ORDERED: LEVOTHYROXINE NA 125 MCG TABLET (FP) PO SCH (10:00)
[2016-09-03] MEDS ORDERED: METHADONE HCL 10 MG TABLET (FOR DETOX USE ONLY) PO ONE (10:00)
[2016-09-03 10:08] LABS: MCH 27.8 pg (25.7-33.7); MCHC 31.9 g/dl (32.0-35.9); MEAN CELL VOLUME 87.1 fl (80-96); MEAN PLT VOLUME 10.8 fl (7.5-11.1); PLATELET COUNT 215 K/MM3 (134-434); RDW 12.8 % (11.9-15.9); WHITE BLOOD COUNT 5.8 K/mm3 (4.0-10.0)
[2016-09-03 10:34] LABS: ALK PHOS 92 U/L (45-117); ANION GAP 10 (8-16); BILIRUBIN,TOTAL 0.6 mg/dL (0.2-1.0); CALCIUM 8.9 mg/dL (8.5-10.1); CO2 27 mmol/L (21-32); COCKROFT - GAULT 101.02; CREATININE 0.9 mg/dL (0.7-1.3); GLUCOSE,RANDOM 135 mg/dL (74-106); SGOT/AST 18 U/L (15-37); SGPT/ALT 29 U/L (12-78); TOT PROT 7.1 g/dl (6.4-8.2)
[2016-09-03] MEDS: HYDROCHLOROTHIAZIDE 25 MG TABLET (FP) PO SCH (11:00)
[2016-09-03] MEDS: NICOTINE 21 MG/24 HOURS TOPICAL PATCH TD SCH (11:00)
[2016-09-03] MEDS: FLUTICASONE PROP 0.05% 16 GM NASAL SPRAY NS SCH (11:00)
[2016-09-03] MEDS: BUDESONIDE/FORMETEROL FUMARATE 80/4.5 mcg INHALER IH SCH ×2 (11:00→22:52)
--- NOTE | 2016-09-03 11:22 | EKG ---
Test Reason : Blood Pressure : / mmHG Vent. Rate : 072 BPM Atrial Rate : 072 BPM P-R Int : 138 ms QRS Dur : 070 ms QT Int : 376 ms P-R-T Axes : 080 065 014 degrees QTc Int : 411 ms NORMAL SINUS RHYTHM POSSIBLE LEFT ATRIAL ENLARGEMENT BORDERLINE ECG WHEN COMPARED WITH ECG OF 03-JUL-2016 15:01, NONSPECIFIC T WAVE ABNORMALITY NO LONGER EVIDENT IN LATERAL LEADS CLINICAL CORRELATION IS RECOMMENDED Confirmed by VEENA FLORES, ELISHA ([id number]) on 09/03/2016 11:21:49 AM Referred By: Confirmed By:ELISHA CURIEL MD
[2016-09-03] MEDS: PRENATAL VITAMINS W/ FOLIC ACID TABLET (FP) PO SCH (11:42)
--- NOTE | 2016-09-03 11:43 | PN ---
S COWS - Scale Resting Pulse: 0= AL 80 or Below Sweatin=Flushed/Facial Moisture Restless Observation: 0= Sits Still Pupil Size: 0= Normal to Room Light Bone or Joint Aches: 2= Severe Diffuse Aches Runny Nose/ Eye Tearin= Runny Nose/Eyes GI Upset > 30mins: 0= None Tremor Observation of Outstretched Hands: 2= Slight Tremor Visible Yawning Observation: 1= 1-2x During Session Anxiety or Irritability: 2=Irritable/Anxious Goose Flesh Skin: 0=Smooth Skin COWS Score: 11 S Progress Note (SOAP) Subjective: interrupted sleep agitation anxiety sweats tired Objective: 09/03/16 11:42 Vital Signs Temperature 97.7 F 09/03/16 11:01 Pulse Rate 78 09/03/16 11:01 Respiratory Rate 16 09/03/16 11:01 Blood Pressure 156/84 09/03/16 11:01 O2 Sat by Pulse Oximetry (%) Laboratory Tests 09/02/16 09/02/16 09/03/16 14:15 15:00 06:00 WBC 5.8 D RBC 5.36 Hgb 14.9 Hct 46.7 MCV 87.1 MCHC 31.9 L RDW 12.8 Plt Count 215 MPV 10.8 Sodium Potassium Chloride Carbon Dioxide Anion Gap BUN Creatinine Creat Clearance w eGFR Random Glucose Calcium Total Bilirubin AST ALT Alkaline Phosphatase Total Protein Albumin Urine Color Yellow Urine Appearance Clear Urine pH 5.0 Ur Specific Hilbert 1.020 Urine Protein Negative Urine Glucose (UA) Negative Urine Ketones Negative Urine Blood 1+ H Urine Nitrite Negative Urine Bilirubin Negative Urine Urobilinogen 2.0 e.u/dl Ur Leukocyte Esterase Negative RPR Titer HIV 1&2 Antibody Screen Negative HIV P24 Antigen Negative 09/03/16 09/03/16 06:00 06:00 WBC RBC Hgb Hct MCV MCHC RDW Plt Count MPV Sodium 144 Potassium 4.1 Chloride 107 Carbon Dioxide 27 Anion Gap 10 BUN 16 Creatinine 0.9 Creat Clearance w eGFR > 60 Random Glucose 135 H D Calcium 8.9 Total Bilirubin 0.6 D AST 18 D ALT 29 Alkaline Phosphatase 92 Total Protein 7.1 Albumin 4.0 Urine Color Urine Appearance Urine pH Ur Specific Hilbert Urine Protein Urine Glucose (UA) Urine Ketones Urine Blood Urine Nitrite Urine Bilirubin Urine Urobilinogen Ur Leukocyte Esterase RPR Titer Nonreactive HIV 1&2 Antibody Screen HIV P24 Antigen awake/alert ambulating no acute distress Assessment: 09/03/16 11:43 withdrawal sx Plan: continue detox increase fluids labs pending
[2016-09-03 15:11] LABS: URINE MUCUS RARE; URINE RBC 4 /hpf (0-3); URINE WBC 1 (3-5)
[2016-09-03] MEDS: MAG HYDROX/AL HYDROX/SIMETH 30 ML UNIT-DOSE CUP PO PRN (22:30)
[2016-09-03] MEDS: THIAMINE HCL 100 MG TABLET (FP) PO SCH (22:31)
[2016-09-03] MEDS: ATORVASTATIN CA 10 MG TABLET (FP) PO SCH (22:52)
[2016-09-03] MEDS: diazePAM 5 MG TABLET PO PRN (22:52)
[2016-09-04] MEDS ORDERED: LEVOTHYROXINE NA 25 MCG TABLET (FP) ONE (04:40)
[2016-09-04] MEDS ORDERED: LEVOTHYROXINE NA 100 MCG TABLET (FP) ONE (04:40)
[2016-09-04] MEDS: LEVOTHYROXINE 25 MCG, LEVOTHYROXINE 100 MCG PO SCH (06:45)
[2016-09-04] MEDS: TRIMETHOBENZAMIDE HCL 200MG/2ML INJ IM PRN ×2 (07:56→16:48)
[2016-09-04] MEDS: METHADONE HCL 10 MG TABLET PO ONE ×2 (09:42→09:44)
[2016-09-04] MEDS: METHADONE DETOX 10 MG/1 ML [20ML VIAL] IM ONE ×2 (09:43→09:44)
[2016-09-04] MEDS: hydrOXYzine PAMOATE 50 MG CAPSULE (FP) PO PRN ×2 (09:43→14:32)
[2016-09-04] MEDS ORDERED: ONDANSETRON *ODT* 4 MG TABLET SL PRN (09:57)
[2016-09-04] MEDS ORDERED: METHADONE HCL 5 MG TABLET (FOR DETOX USE ONLY) PO ONE (10:00)
--- NOTE | 2016-09-04 10:31 | PN ---
[facility] COWS - Scale Resting Pulse: 0= MD 80 or Below Sweatin=Flushed/Facial Moisture Restless Observation: 1= Difficult to Sit Still Pupil Size: 1= Pupils >than Normal Bone or Joint Aches: 1= Mild Discomfort Runny Nose/ Eye Tearin= Nasal Congestion GI Upset > 30mins: 3= Vomiting/Diarrhea Tremor Observation of Outstretched Hands: 2= Slight Tremor Visible Yawning Observation: 0= None Anxiety or Irritability: 2=Irritable/Anxious Goose Flesh Skin: 0=Smooth Skin COWS Score: 13 BHS Progress Note (SOAP) Subjective: interrupted sleep, sweats, shakes nausea, vomiting Objective: 09/04/16 10:29 Vital Signs Temperature 97.9 F 09/04/16 06:00 Pulse Rate 56 L 09/04/16 06:00 Respiratory Rate 18 09/04/16 06:00 Blood Pressure 145/76 09/04/16 06:00 O2 Sat by Pulse Oximetry (%) Laboratory Tests 09/02/16 09/02/16 09/03/16 14:15 15:00 06:00 WBC 5.8 D RBC 5.36 Hgb 14.9 Hct 46.7 MCV 87.1 MCHC 31.9 L RDW 12.8 Plt Count 215 MPV 10.8 Sodium Potassium Chloride Carbon Dioxide Anion Gap BUN Creatinine Creat Clearance w eGFR Random Glucose Calcium Total Bilirubin AST ALT Alkaline Phosphatase Total Protein Albumin Urine Color Yellow Urine Appearance Clear Urine pH 5.0 Ur Specific [place] 1.020 Urine Protein Negative Urine Glucose (UA) Negative Urine Ketones Negative Urine Blood 1+ H Urine Nitrite Negative Urine Bilirubin Negative Urine Urobilinogen 2.0 e.u/dl Ur Leukocyte Esterase Negative Urine RBC 4 Urine WBC 1 Ur Epithelial Cells Rare Urine Mucus Rare RPR Titer HIV 1&2 Antibody Screen Negative HIV P24 Antigen Negative 09/03/16 09/03/16 06:00 06:00 WBC RBC Hgb Hct MCV MCHC RDW Plt Count MPV Sodium 144 Potassium 4.1 Chloride 107 Carbon Dioxide 27 Anion Gap 10 BUN 16 Creatinine 0.9 Creat Clearance w eGFR > 60 Random Glucose 135 H D Calcium 8.9 Total Bilirubin 0.6 D AST 18 D ALT 29 Alkaline Phosphatase 92 Total Protein 7.1 Albumin 4.0 Urine Color Urine Appearance Urine pH Ur Specific [place] Urine Protein Urine Glucose (UA) Urine Ketones Urine Blood Urine Nitrite Urine Bilirubin Urine Urobilinogen Ur Leukocyte Esterase Urine RBC Urine WBC Ur Epithelial Cells Urine Mucus RPR Titer Nonreactive HIV 1&2 Antibody Screen HIV P24 Antigen pt aox3 , lying in bed , irritable Assessment: 09/04/16 10:30 withdrawal sx's Plan: cont. detox increase fluids zofran prn methadone 7.5mg im given clonidine 0.1 mg bid
[2016-09-04] MEDS: diazePAM 5 MG TABLET PO PRN ×2 (11:28→19:17)
[2016-09-04] MEDS: HYDROCHLOROTHIAZIDE 25 MG TABLET (FP) PO SCH (11:28)
[2016-09-04] MEDS: FLUTICASONE PROP 0.05% 16 GM NASAL SPRAY NS SCH (11:28)
[2016-09-04] MEDS: BUDESONIDE/FORMETEROL FUMARATE 80/4.5 mcg INHALER IH SCH ×2 (11:28→22:49)
[2016-09-04] MEDS: PRENATAL VITAMINS W/ FOLIC ACID TABLET (FP) PO SCH (11:29)
[2016-09-04] MEDS: cloNIDine HCL 0.1 MG TABLET PO SCH ×2 (11:31→22:49)
[2016-09-04] MEDS: ALBUTEROL SO4 6.7 GM HFA INHALER IH PRN (11:38)
[2016-09-04] MEDS: NICOTINE 21 MG/24 HOURS TOPICAL PATCH TD SCH (11:38)
--- NOTE | 2016-09-04 13:21 | EKG ---
Test Reason : Blood Pressure : / mmHG Vent. Rate : 069 BPM Atrial Rate : 069 BPM P-R Int : 122 ms QRS Dur : 076 ms QT Int : 388 ms P-R-T Axes : 084 069 038 degrees QTc Int : 415 ms NORMAL SINUS RHYTHM NORMAL ECG WHEN COMPARED WITH ECG OF 02-SEP-2016 14:55, NO SIGNIFICANT CHANGE WAS FOUND Confirmed by MALKA MORGAN MD ([id number]) on 09/04/2016 1:20:48 PM Referred By: Confirmed By:MALKA MORGAN MD
[2016-09-04] MEDS: THIAMINE HCL 100 MG TABLET (FP) PO SCH (22:49)
[2016-09-04] MEDS: ATORVASTATIN CA 10 MG TABLET (FP) PO SCH (22:49)
[2016-09-05] MEDS ORDERED: LEVOTHYROXINE NA 100 MCG TABLET (FP) ONE (03:38)
[2016-09-05] MEDS ORDERED: LEVOTHYROXINE NA 25 MCG TABLET (FP) ONE (03:38)
[2016-09-05] MEDS ORDERED: METHADONE HCL 5 MG TABLET (FOR DETOX USE ONLY) PO ONE (10:00)
--- NOTE | 2016-09-05 10:42 | PN ---
BHS Progress Note (SOAP) Subjective: ALERT,IRRITABLE,ANXIOUS,INTERRUPTED SLEEP,NAUSEA,PAIN IN THE BODY AND BACK Objective: 09/05/16 10:41 Vital Signs Temperature 98.4 F 09/05/16 10:25 Pulse Rate 118 H 09/05/16 10:25 Respiratory Rate 18 09/05/16 10:25 Blood Pressure 114/105 09/05/16 10:25 O2 Sat by Pulse Oximetry (%) Assessment: 09/05/16 10:41 WITHDRAWAL SYMPTOM Plan: CONTINUE DETOX
[2016-09-05] MEDS: hydrOXYzine PAMOATE 50 MG CAPSULE (FP) PO PRN (10:51)
[2016-09-05] MEDS: HYDROCHLOROTHIAZIDE 25 MG TABLET (FP) PO SCH (10:51)
[2016-09-05] MEDS: FLUTICASONE PROP 0.05% 16 GM NASAL SPRAY NS SCH (10:51)
[2016-09-05] MEDS: diazePAM 5 MG TABLET PO PRN (10:51)
[2016-09-05] MEDS: cloNIDine HCL 0.1 MG TABLET PO SCH ×2 (10:51→22:31)
[2016-09-05] MEDS: NICOTINE 21 MG/24 HOURS TOPICAL PATCH TD SCH (10:52)
[2016-09-05] MEDS: BUDESONIDE/FORMETEROL FUMARATE 80/4.5 mcg INHALER IH SCH ×2 (10:52→22:31)
[2016-09-05] MEDS: PRENATAL VITAMINS W/ FOLIC ACID TABLET (FP) PO SCH (10:52)
[2016-09-05] MEDS: LEVOTHYROXINE 25 MCG, LEVOTHYROXINE 100 MCG PO SCH (10:53)
[2016-09-05] MEDS: ALBUTEROL SO4 6.7 GM HFA INHALER IH PRN (10:56)
[2016-09-05] MEDS: ATORVASTATIN CA 10 MG TABLET (FP) PO SCH (22:31)
[2016-09-05] MEDS: THIAMINE HCL 100 MG TABLET (FP) PO SCH (22:31)
[2016-09-06] MEDS ORDERED: LEVOTHYROXINE NA 25 MCG TABLET (FP) ONE (04:27)
[2016-09-06] MEDS ORDERED: LEVOTHYROXINE NA 100 MCG TABLET (FP) ONE (04:27)
[2016-09-06] MEDS: LEVOTHYROXINE 25 MCG, LEVOTHYROXINE 100 MCG PO SCH (07:11)
[2016-09-06] MEDS ORDERED: METHADONE HCL 10 MG TABLET (FOR DETOX USE ONLY) PO ONE (10:00)
--- NOTE | 2016-09-06 10:40 | PN ---
S Progress Note (SOAP) Subjective: ALERT,IRRITABLE,ANXIOUS,INTERRUPTED SLEEP Objective: 09/06/16 10:39 Vital Signs Temperature 98.2 F 09/06/16 06:00 Pulse Rate 90 09/06/16 06:00 Respiratory Rate 18 09/06/16 06:30 Blood Pressure 146/88 09/06/16 06:00 O2 Sat by Pulse Oximetry (%) Assessment: 09/06/16 10:39 WITHDRAWAL SYMPTOM Plan: CONTINUE DETOX,DISCHARGE IN AM
[2016-09-06] MEDS: hydrOXYzine PAMOATE 50 MG CAPSULE (FP) PO PRN ×2 (11:00→15:05)
[2016-09-06] MEDS: ALBUTEROL SO4 6.7 GM HFA INHALER IH PRN (11:00)
[2016-09-06] MEDS: HYDROCHLOROTHIAZIDE 25 MG TABLET (FP) PO SCH (11:00)
[2016-09-06] MEDS: BUDESONIDE/FORMETEROL FUMARATE 80/4.5 mcg INHALER IH SCH ×2 (11:00→23:24)
[2016-09-06] MEDS: FLUTICASONE PROP 0.05% 16 GM NASAL SPRAY NS SCH (11:00)
[2016-09-06] MEDS: PRENATAL VITAMINS W/ FOLIC ACID TABLET (FP) PO SCH (11:08)
[2016-09-06] MEDS: NICOTINE 21 MG/24 HOURS TOPICAL PATCH TD SCH (11:08)
[2016-09-06] MEDS: MAG HYDROX/AL HYDROX/SIMETH 30 ML UNIT-DOSE CUP PO PRN (15:05)
[2016-09-06 22:18] VITALS: PULSE 95
[2016-09-06] MEDS: ATORVASTATIN CA 10 MG TABLET (FP) PO SCH (23:24)
[2016-09-06] MEDS: THIAMINE HCL 100 MG TABLET (FP) PO SCH (23:25)
[2016-09-07] MEDS ORDERED: LEVOTHYROXINE NA 100 MCG TABLET (FP) ONE (04:15)
[2016-09-07] MEDS ORDERED: LEVOTHYROXINE NA 25 MCG TABLET (FP) ONE (04:15)
[2016-09-07] MEDS ORDERED: METHADONE HCL 5 MG TABLET (FOR DETOX USE ONLY) PO ONE (06:00)
[2016-09-07] MEDS: LEVOTHYROXINE 25 MCG, LEVOTHYROXINE 100 MCG PO SCH (06:46)
[2016-09-07 07:03] VITALS: BP 140/81; TEMP 99.7
--- NOTE | 2016-09-07 08:34 | PN ---
S Progress Note (SOAP) Subjective: ALERT,NO COMPLAINT Objective: 09/07/16 08:48 Vital Signs Temperature 99.7 F H 09/07/16 07:03 Pulse Rate 95 H 09/07/16 07:03 Respiratory Rate 18 09/07/16 07:03 Blood Pressure 140/81 09/07/16 07:03 O2 Sat by Pulse Oximetry (%) Assessment: 09/07/16 08:48 DETOX COMPLETE,NO WITHDRAWAL SYMPTOM Plan: DISCHARGE TODAY,FOLLOW UP WITH AFTER CARE PROGRAM ARRANGEMENT
--- NOTE | 2016-09-07 08:57 | DS ---
[facility] Detox Discharge Summary Admission Date: 09/02/16 Discharge Date: 09/07/16 - History Present History: Opioid Dependence Additional Comments: FOLLOW UP WITH AFTER [facility] PROGRAM ARRANGEMENT AND PMD FOR MEDICAL PROBLEM, PATIENT HAS OWN MEDICATIONS AT HOME Pertinent Past History: ASTHMA HEPATITIS C HYPERTENSION HYPERCHOLESTEROLEMIA HYPOTHYROIDISM NICOTINE DEPENDENCE - Physical Exam Results Vital Signs: Vital Signs Temperature 99.7 F H 09/07/16 07:03 Pulse Rate 95 H 09/07/16 07:03 Respiratory Rate 18 09/07/16 07:03 Blood Pressure 140/81 09/07/16 07:03 O2 Sat by Pulse Oximetry (%) - Treatment Hospital Course: Detox Protocol Followed, Detoxed Safely, Responded well, Discharged Condition Good, Rehab Referral Accepted ([facility]) - Medication Discharge Medications: Ambulatory Orders Albuterol Sulfate Inhaler - [Ventolin Hfa Inhaler -] 2 inh PO Q4H PRN 02/19/16 Atorvastatin Calcium [Lipitor] 10 mg PO HS 02/19/16 Hydrochlorothiazide [Hctz -] 25 mg PO DAILY 02/19/16 Levothyroxine Sodium [Levo-T] 125 mcg PO DAILY 02/19/16 Fluoxetine HCl [Prozac -] 60 mg PO DAILY #30 capsule 04/17/16 - Diagnosis (1) Nicotine dependence Current Visit: Yes Status: Acute Qualifiers: Nicotine product type: cigarettes Substance use status: uncomplicated Qualified Code(s): F17.210 - Nicotine dependence, cigarettes, uncomplicated (2) Opioid dependence with withdrawal Current Visit: Yes Status: Acute (3) Asthma Current Visit: Yes Status: Chronic Qualifiers: Asthma severity: mild intermittent Asthma complication type: uncomplicated Qualified Code(s): J45.20 - Mild intermittent asthma, uncomplicated (4) Hepatitis C Current Visit: Yes Status: Chronic Qualifiers: Viral hepatitis chronicity: chronic Hepatic coma status: without hepatic coma Qualified Code(s): B18.2 - Chronic viral hepatitis C (5) Hypercholesterolemia Current Visit: Yes Status: Chronic (6) Hypertension Current Visit: Yes Status: Chronic Qualifiers: Hypertension type: essential hypertension Qualified Code(s): I10 - Essential (primary) hypertension (7) Hypothyroid Current Visit: Yes Status: Chronic Qualifiers: Hypothyroidism type: acquired Qualified Code(s): E03.9 - Hypothyroidism, unspecified (8) Low back pain Current Visit: No Status: Chronic - AMA Did Patient Leave Against Medical Advice: No
== END 2016-09-07 09:30 | disposition home or self-care (01) | DRG 773 ==
LOC: YASAS 11:28 → Y6N 14:28
PROVIDERS: ADMIT Internal Medicine Addiction Medicine; ATTEND Internal Medicine Addiction Medicine
PROC: HZ2ZZZZ Detoxification Services for Substance Abuse Treatment (ICD-10-PCS; principal; 2016-09-07)
DX: F11.23 Opioid dependence with withdrawal (principal); F17.210 Nicotine dependence, cigarettes, uncomplicated; F19.24 Other psychoactive substance dependence with psychoactive substance-induced mood disorder; F43.10 Post-traumatic stress disorder, unspecified; F32.9 Major depressive disorder, single episode, unspecified; I10 Essential (primary) hypertension; E78.00 Pure hypercholesterolemia, unspecified; E03.9 Hypothyroidism, unspecified; J45.20 Mild intermittent asthma, uncomplicated; B18.2 Chronic viral hepatitis C; M54.5 Low back pain; G89.29 Other chronic pain
CPT/HCPCS: 36415; 80053; 81003; 81015; 85027; 86593; 87389; 93005; 93010; 94640